=== PATIENT | female | born 1960 | race Two or more races ===

== ENCOUNTER 2018-11-11 10:12 | Outpatient (CLI) | payer OTHER | END 2018-11-11 10:23 | disposition home or self-care (01) | LOC: SONOGRAMA 10:12 → MAMO-SONO 10:45 | DX: E04.1 Nontoxic single thyroid nodule (principal) ==

== ENCOUNTER 2018-11-13 12:14 | Outpatient (CLI) | payer OTHER | END 2018-11-13 15:09 | disposition home or self-care (01) | LOC: MAMO-SONO 12:14 | DX: Z12.31 Encounter for screening mammogram for malignant neoplasm of breast (principal) ==

== ENCOUNTER 2018-11-16 09:32 | Outpatient (CLI) | payer OTHER | END 2018-11-16 09:42 | disposition home or self-care (01) | LOC: RX STUDY 09:32 | DX: K44.9 Diaphragmatic hernia without obstruction or gangrene (principal); R13.19 Other dysphagia ==